=== PATIENT | female | born 1945 | race Caucasian/White ===

== ENCOUNTER 2017-04-28 03:03 | Inpatient (IN) | payer MEDICARE ==
[~2017-04-28] VITALS: Ht 165.1 cm; Wt 68.4 kg
[~2017-04-28 03:03] MED LIST: CALTRATE-600 W600 MG PO; COZAAR100 MG PO; DELTASONE DPS10 MG PO; DUONEB DPS3 ML IH; FOSAMAX70 MG PO; GLUCOSAMINE H1500 MG PO; LASIX DPS20 MG PO; LASIX DPS40 MG PO; MICRO-K DPS10 MEQ PO; MUCINEX600 MG PO; NYSTATIN CREAM15 GM TP; OMNICEF DPS300 MG PO; PROTONIX40 MG PO; SPIRIVA18 MCG IH; SYMBICORT160 MCG/6 IH; TYLENOL DPS325 MG PO
--- NOTE | 2017-04-28 19:59 | ER ---
ADMIT: 04/28/2017 RM/LOC: 512 [facility] MR#: [id number] [address] [facility] [address] [place] [phone] [place] [id number] Emergency Room Report SEX: F AGE: 71 : 1945 DATE: 04/28/2017 HISTORY OF PRESENT ILLNESS: The patient is a 71-year-old female with chief complaint of epigastric abdominal pain since last night and nausea and vomiting, who was transferred from [facility] to the ER. Allegedly, after talking to Dr. Chappell on the phone, the patient had epigastric abdominal pain since last night and in their facility, the patient had temperature of 103 and was tachycardic in 112, blood pressure was 120s over 80s. PAST MEDICAL HISTORY: The patient has a history of CHF, hypertension, COPD, and chronic kidney disease, and only received 250 mL of fluid and received Tylenol for fever and pain was controlled per transferring facility, the patient had rigidity and tenderness and guarding in all the abdomen. Because of elevated creatinine to 2, the patient had CT scan without contrast. The patient after that was transferred to the ER. The patient received a dose of Zosyn over there. Urine in that facility showed bacteriuria with blood, without any white blood cells. AST, ALT, and alkaline phosphatase was also elevated although the lactic level was less than 2 and WBC was in the range of 5. PHYSICAL EXAMINATION: GENERAL: When we received the patient, she was in moderate distress because of the abdominal pain. VITAL SIGNS: Afebrile in the ER here, respiratory rate was 20, heart rate was 88, and the blood pressure was 130/75. She was anxious. HEENT: Head and neck examination was noncontributory and normal. CHEST: Wheezing bilaterally without any crackles. HEART: Normal heart sounds. ABDOMEN: The patient had rigidity during examination but if we distract the patient. The patient's belly was soft during this examination. I did not feel any rebounds, and also I did not feel any pulsating masses. EXTREMITIES: The patient had no obvious edema in the lower extremities. NEURO: The neural exam is grossly normal. The patient had very mild bilateral CVA tenderness, although wherever in the back we touched, the patient states it hurts. The patient did not receive any pain control in the ER. When I rechecked the patient for repeat examination, the patient was asleep and the belly was soft and nontender, and no rebound, no guarding. LABORATORY AND X-RAY DATA: Chest x-ray was negative for any acute changes. Examination showed WBC of 4.2, with ESR of 15 and CRP was elevated to 22, lactic acid was 0.6. Procalcitonin was also elevated to 11.8. Bilirubin total was elevated to 1.0 from previous bilirubin from that facility which is in the chart also. AST and ALT were also elevated to 512 and 126 respectively comparing with the range of 30 to 50s from January to February from the previous facility. Alkaline phos was also elevated from 100 to 324. Creatinine was ADMIT: 04/28/2017 RM/LOC: 512 [facility] MR#: [id number] [address] [place] [id number] TACL, FARRUKH Figueroa [address] [place] [id number] Emergency Room Report SEX: F AGE: 71 : 1945 also elevated from 1.1 to 1.8. Potassium was 3.1, with sodium of 138, and BUN of 65 and glucose of 94. CT scan was read as very mild nonspecific mesenteric stranding in the left upper quadrant just superior to the pancreatic tail and questionable for localized pancreatitis evolving. There were no evidence of acute intraabdominal or intrapelvic pathologies other than formation. The patient's troponin was very mildly elevated at 0.045. CK was also elevated to 900s. Lipase level from the other facility was normal. ASSESSMENT AND PLAN: With the diagnoses of urinary tract infection, acute kidney injury, abdominal pain, rule out acute coronary syndrome and rule out cholangitis versus pancreatitis, the patient was admitted for further followups and treatments. Luis Rodriguez MD/ jamarcus JOB #: [id number] CC: Jayro Flaherty DO, Attending Physician Jayro Flaherty DO, Family Physician
--- NOTE | 2017-05-01 08:38 | HP ---
ADMIT: 04/28/2017 RM/LOC: 512 [facility] MR#: [id number] ACC#: [id number] [address] [facility] [address] [place] [id number] [place]AC[place], [place] [address] History and Physical SEX: F AGE: 71 : 1945 DATE OF SERVICE: 04/28/2017 REASON FOR HOSPITALIZATION: Acute pancreatitis. HISTORY: A 71-year-old female patient, who transferred from [facility] with abdominal pain, symptoms of UTI, blood in urine, fever, nausea, and inflammatory stranding on CAT scan of the abdomen consistent with an early pancreatitis. She has a history of COPD, peripheral vascular disease, hypertension, gout, CKD, DJD, and she is a smoker and does report alcohol use. FAMILY HISTORY: Noncontributory. MEDICATIONS: Include: 1. Protonix. 2. Symbicort. 3. Nebulized treatments. 4. Magnesium. 5. Fosamax. For specifics of dosing in details, please refer to admission intake med list. REVIEW OF SYSTEMS: She reports abdominal discomfort, some shortness of breath. She is having nausea. No diarrhea or constipation. No bleeding. PHYSICAL EXAMINATION: GENERAL: She is uncomfortable. She does not answer detailed questions because of the discomfort. VITAL SIGNS: Her blood pressure is 131/75, sat of 99%, temperature 98.1. ABDOMEN: She is uncomfortable. She has a tender epigastrium. LUNGS: She is wheezing. HEART: Her heart is regular. EXTREMITIES: She has no peripheral edema. LABORATORY DATA: Potassium 3.1, creatinine 1.8. LFTs are elevated. C- reactive protein is elevated. White count is 4.2, hemoglobin 11.0. Lactate is 0.6. Procalcitonin is normal. CT, inflammatory changes at pancreatic ADMIT: 04/28/2017 RM/LOC: 512 [facility] MR#: [id number] [address] [facility] [address] [place] [phone] TAC[place], [place] [address] History and Physical SEX: F AGE: 71 : 1945 tail. IMPRESSION: 1. Acute pancreatitis. 2. Chronic obstructive pulmonary disease. 3. Hypertension. 4. Urinary tract infection. 5. Acute on chronic kidney disease. 6. Hypokalemia. PLAN: Admit, IV antibiotic therapy, get rest, replace her potassium, hydrate, provide her with steroids, nebulized treatments, and monitor. Jayro Flaherty DO/ modl JOB #: [id number] CC: Jayro Flaherty, Attending Physician Jayro Flaherty, Family Physician
[2017-05-01] MEDS ORDERED: LOMOTIL 2.5-0.1 EACH PO (11:40)
[2017-05-01] MEDS ORDERED: DITROPAN-DPS5 MG PO (11:41)
[2017-05-01] MEDS ORDERED: ALDACTONE25 MG PO (11:41)
[2017-05-01] MEDS ORDERED: MAG-OX400 MG PO (11:42)
[2017-05-01] MEDS ORDERED: SYMBICORT160 MCG/6 IH (11:44)
[2017-05-01] MEDS ORDERED: PROCTOZONE-HC 230 GM PR (11:45)
[2017-05-01] MEDS ORDERED: ASA CHILDREN'S81 MG PO (11:45)
[2017-05-01] MEDS ORDERED: PEPCID DPS20 MG PO (11:46)
[2017-05-01] MEDS ORDERED: ONE DAILY MUL400 MCG PO (11:48)
[2017-05-01] MEDS ORDERED: DIFLUCAN DPS200 MG PO (11:49)
--- NOTE | 2017-06-12 08:14 | DS ---
ADMIT: 04/28/2017 RM/LOC: 512 [facility] MR#: [id number] [address] [facility] [address] [place] [id number] TACL, [place] [address] General Discharge Summary SEX: F AGE: 71 : 1945 ADMISSION DATE: 04/28/2017 DISCHARGE DATE: 04/30/2017 REASON FOR HOSPITALIZATION: Acute pancreatitis. HISTORY OF PRESENT ILLNESS: This is a 71-year-old female patient, who transferred from [facility] with abdominal pain, urinary tract infection, fever, nausea, and suspected acute pancreatitis. She has underlying history of COPD, CKD, DJD. She is a smoker. She has history of gout and peripheral vascular disease. At presentation, she was started on IV fluids, made n.p.o., and started on broad-spectrum antibiotic therapy IV Pepcid, pain management, and underwent further evaluation. She wished not to be placed on a ventilator if necessary and we made her DNI status, gave her steroid management of her underlying pulmonary disease. With pancreatitis, she was slowly able to resume diet, and on 04/29, we started her on a full liquid diet and reduced her IV fluids. On 04/30, she was doing much better. She was eating, had only faint wheezes. Her liver enzymes were showing improvement. 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 I dismissed her home. She was to stop using tobacco and alcohol, and I discussed this in detail with her. I offered her alcohol treatment program, but she declined. She was to follow up with her primary care doctor in 7 to 10 days with amylase, liver enzymes, and CBC, and take a multivitamin with folate one daily. I also put her on a tapering dose of prednisone 20 mg daily for 5 days, 10 mg daily for 5 days, and then stop. Jayro Flaherty DO/ jamarcus JOB #: [id number] CC: Jayro Flaherty DO, Attending Physician Jayro Flaherty DO, Family Physician
== END 2017-04-30 14:07 | disposition home or self-care (01) | DRG 439 ==
LOC: ER 03:03 → 5MS 05:35
PROVIDERS: ADMIT Internal Medicine
DX: K85.20 Alcohol induced acute pancreatitis without necrosis or infection (principal); N39.0 Urinary tract infection, site not specified; N17.9 Acute kidney failure, unspecified; I50.9 Heart failure, unspecified; J44.9 Chronic obstructive pulmonary disease, unspecified; I12.9 Hypertensive chronic kidney disease with stage 1 through stage 4 chronic kidney disease, or unspecified chronic kidney disease; N18.9 Chronic kidney disease, unspecified; I73.9 Peripheral vascular disease, unspecified; M19.90 Unspecified osteoarthritis, unspecified site; F17.210 Nicotine dependence, cigarettes, uncomplicated; E87.6 Hypokalemia; K70.10 Alcoholic hepatitis without ascites